=== PATIENT | female | born 1980 ===

== ENCOUNTER → 2020-09-30 | Outpatient (CLI) | payer OTHER | END | disposition home or self-care (01) | LOC: PPH VACUNA | DX: Z23 Encounter for immunization (principal) ==

== ENCOUNTER 2020-10-21 00:17 | Outpatient (CLI) | payer OTHER | END 2020-10-21 00:18 | disposition home or self-care (01) | LOC: PPH VACUNA 00:17 | DX: Z23 Encounter for immunization (principal) ==

== ENCOUNTER → 2021-05-16 | Outpatient (CLI) | payer OTHER | END | disposition home or self-care (01) | LOC: PPH VACUNA 01:45 | PROVIDERS: ATTEND Emergency Medicine Pediatric Emergency Medicine | DX: Z23 Encounter for immunization (principal) ==

== ENCOUNTER → 2021-06-12 07:37 | Outpatient (CLI) | payer OTHER | END | disposition home or self-care (01) | LOC: LAB 07:37 | PROVIDERS: ATTEND Emergency Medicine Pediatric Emergency Medicine | DX: Z20.822 Contact with and (suspected) exposure to COVID-19 (principal) ==